=== PATIENT | male | born 1985 | race Caucasian/White ===

== ENCOUNTER 2018-01-27 15:38 | Emergency (ER) | payer BC ==
[~2018-01-27] VITALS: Ht 167.6 cm; Wt 95.8 kg
[~2018-01-27 15:38] MED LIST: FLUC200T PO
[2018-01-27 15:45] VITALS: BP 151/96
== END 2018-01-27 16:20 | disposition home or self-care (01) ==
LOC: ER 15:39
DX: M79.671 Pain in right foot (principal)
CPT/HCPCS: 73630; 99284

== ENCOUNTER 2023-09-25 02:31 | Emergency (ER) | payer BC ==
[~2023-09-25] VITALS: Ht 167.6 cm; Wt 93.2 kg
[2023-09-25 03:16] LABS: BILIRUBIN,URINE NEGATIVE (Neg); CLARITY,URINE SLIGHTLY CLOUDY (Clear); COLOR,URINE YELLOW (Yellow); GLUCOSE, URINE NEGATIVE (Neg); KETONES,URINE NEGATIVE (Neg); LEUKOCYTE ESTERASE ,URINE NEGATIVE (Neg); NITRITES, URINE NEGATIVE (Neg); OCCULT BLOOD,URINE LARGE (Neg); PH,URINE 5.5 (4.8-8.0); PROTEIN,URINE NEGATIVE (Neg); UROBILINOGEN,URINE 0.2 E.U/dL (0.2-1.0)
[2023-09-25 03:17] LABS: UA COLLECTION TYPE URINAL
[2023-09-25 03:25] LABS: BACTERIA,URINE FEW /HPF (Neg); RBC,URINE TNTC /HPF (0-2); SQUAMOUS EPITHELIAL CELL,UR FEW /LPF (FEW); TRANSITIONAL EPI CELLS,URINE FEW /HPF; WBC,URINE 0-4 /HPF (0-4)
[2023-09-25 03:26] LABS: GLUCOSE 121 MG/DL (70-104)
[2023-09-25 03:27] LABS: ALBUMIN 4.2 G/DL (3.4-5.0); ANION GAP 9 (8-16); BLOOD UREA NITROGEN 12 MG/DL (7-18); BUN/CREATININE RATIO 9.1 (10.0-20.0); CALCIUM 9.1 MG/DL (8.5-10.1); CHLORIDE 104 MMOL/L (99-107); CREATININE 1.32 MG/DL (0.60-1.10); LIPASE 35 U/L (16-77); POTASSIUM 3.3 MMOL/L (3.5-5.1); SODIUM 138 MMOL/L (135-145); TOTAL CARBON DIOXIDE 24.8 MMOL/L (24-32); eCRCL 68 ML/MIN; eGFR 60 ML/MIN
[2023-09-25 03:31] LABS: BASOPHILS % (AUTO) 0.7 % (0-1); EOSINOPHILS # (AUTO) 0.3 X10'3 (0-0.9); EOSINOPHILS % (AUTO) 4.6 % (0-6); HEMATOCRIT 41.9 % (42.0-52.0); HEMOGLOBIN 14.1 g/dl (14.0-17.9); LYMPHOCYTES # (AUTO) 2.3 X10'3 (1.1-4.8); LYMPHOCYTES % (AUTO) 33.6 % (21-51); MEAN CORPUSCULAR HEMOGLOBIN 31.3 PG (27.0-31.0); MEAN CORPUSCULAR HGB CONC 33.7 g/dL (33.0-36.5); MEAN PLATELET VOLUME 6.9 FL (7.4-10.4); MONOCYTES # (AUTO) 0.6 X10'3 (0-0.9); MONOCYTES % (AUTO) 8.4 % (2-12); NEUTROPHILS # (AUTO) 3.7 X10'3 (1.8-7.7); NEUTROPHILS % (AUTO) 52.7 % (42-75); PLATELET COUNT 202 X10'3 (140-440); RED CELL DISTRIBUTION WIDTH 14.6 % (11.5-14.5)
[2023-09-25] MEDS ORDERED: ketorolac trometh. 30mg/ml inj. IV ONE (03:35)
[2023-09-25] MEDS: ondansetron/PF 4mg/2ml inj IV ONE (03:43)
[2023-09-25] MEDS: ketorolac tromethamine 15mg/ml inj. IV ONE (03:43)
[2023-09-25] MEDS ORDERED: EMTR1TAB PO (03:51)
[2023-09-25] MEDS ORDERED: SEMA2PEN SUBCUT (03:51)
[2023-09-25] MEDS ORDERED: ALLO300T8 (03:51)
[2023-09-25] MEDS: acetaminophen 1,000mg/100ml IV 100 ML IV ONE (04:07)
[2023-09-25] MEDS ORDERED: ONDA8TAB13 PO (05:09)
[2023-09-25] MEDS ORDERED: HYDR-3965 PO (05:09)
[2023-09-25 05:24] VITALS: BP 135/93; PULSE 88; RESP 16; TEMP 98.2; O2SAT 97
== END 2023-09-25 05:28 | disposition home or self-care (01) ==
LOC: ER 02:31
DX: N20.0 Calculus of kidney (principal); Z79.899 Other long term (current) drug therapy
CPT/HCPCS: 36415; 74176; 80048; 81001; 83690; 85025; 96365; 96375; 99285; J0131; J1885; J2405